=== PATIENT | male | born 1950 | race Caucasian/White ===

== ENCOUNTER → 2018-05-30 10:02 | Outpatient (CLI) | payer MEDICARE, OTHER, SELFPAY ==
--- NOTE | 2018-05-30 | DI.CT.S_ITS ---
PROCEDURE: CT CHEST ABD PEL W CON INDICATIONS: PROSTATE CANCER TECHNIQUE: After the administration of oral and intravenous contrast, 5 mm thick sections acquired from the lung apices to the symphysis. 5 mm coronal and sagittal reformats were performed, with additional 7 mm coronal MIP reformats through the lungs. For radiation dose reduction, the following was used: automated exposure control, adjustment of mA and/or kV according to patient size. COMPARISON: None. FINDINGS: Image quality: Excellent. CHEST: Lungs and pleura: There is biapical scarring. 4 mm nodular density in the anterior aspect of right upper lobe is seen series 3 image 28. 2 mm subpleural ground glass density nodule is seen in anterior aspect of right middle lobe series 3 image 45. 4 mm partially calcified nodule in lateral periphery of left upper lobe is seen series 3 image 42. Scarring/atelectasis in posterior aspect of bilateral lower lung [place] are seen. No acute airspace opacities. No pleural effusions or pneumothorax. Central and peripheral airways appear patent and normal in caliber. Mediastinum: Heart size is normal. No pericardial effusion. No mediastinal or hilar adenopathy by size criteria. Thoracic aorta and central pulmonary arteries are normal in size. Esophagus is normal in caliber. There is a small hiatal hernia. Chest wall: No axillary or supraclavicular adenopathy by size criteria. Thyroid gland is within normal limits. ABDOMEN: Solid organs: Liver is normal in size. Mild hepatic steatosis is seen. Gallbladder is within normal limits. Biliary system is non dilated. Pancreas enhances normally. Spleen is normal in size and enhancement. No adrenal nodules. Kidneys demonstrate normal size and enhancement, without hydronephrosis. Peritoneum and bowel: Bowel loops demonstrate normal wall thickness and caliber. No free fluid or air. Nodes and vessels: No retroperitoneal or mesenteric adenopathy by size criteria. Aorta and inferior vena cava are normal in size. Miscellaneous: No ventral hernias. PELVIS: Genitourinary: Mild diffuse bladder wall thickening is seen, no discrete bladder wall lesion. Prostate gland is enlarged with mild mass effect of floor of urinary bladder. Miscellaneous: No inguinal hernias or adenopathy. Bones: No suspicious bony lesions. No vertebral body compression fractures. IMPRESSION: 1. 2 and 4 mm solid nodular densities in right upper and middle lobes as above. Partially calcified left upper lobe nodule. Finding likely represents benign process. Metastatic lung nodule cannot be entirely excluded given patient history. Followup CT study in 6-12 months is recommended. 2. Mild diffuse bladder wall thickening, no discrete bladder wall lesion. Enlarged prostate gland with mild mass effect of floor of urinary bladder. 3. No lymphadenopathy is seen in the chest, abdomen or pelvis. 4. No discrete suspicious bony lesion is noted. Please correlate with nuclear medicine bone scan finding. Dictated by: Kd Ayers M.D. on 05/30/2018 at 13:43 Approved by: Kd Ayers M.D. on 05/30/2018 at 13:54
--- NOTE | 2018-05-30 | DI.NM.S_ITS ---
PROCEDURE: NM BONE SCAN WHOLE BODY RADIOPHARMACEUTICAL: 20 mCi Tc-99m MDP IV. INDICATIONS: PROSTATE CANCER TECHNIQUE: Delayed whole-body scintigrams were obtained approximately 3-4 hours after intravenous injection of radiotracer. Anterior and posterior views were acquired from vertex to feet. Additional left and right oblique views of the pelvis were obtained. COMPARISON: [facility], CT, CT CHEST ABD PEL W CON, 05/30/2018, 11:58. FINDINGS: Degenerative changes are present at the a.c. joints bilaterally, right greater than left. Moderate osteoarthritis also can be seen at each risks, also right greater than left. Over the axial and appendicular skeleton no osseous metastatic disease is found. IMPRESSION: No evidence of prostate carcinoma metastasis. Degenerative changes as discussed. Dictated by: Eric Estrada M.D. on 05/30/2018 at 15:23 Approved by: Eric Estrada M.D. on 05/30/2018 at 15:25
== END ==
PROVIDERS: Family Provider Family Medicine; PCP Family Medicine; Visit Provider Specialist
DX: C61 Malignant neoplasm of prostate (principal); M19.012 Primary osteoarthritis, left shoulder; M19.011 Primary osteoarthritis, right shoulder; R91.8 Other nonspecific abnormal finding of lung field; N40.0 Benign prostatic hyperplasia without lower urinary tract symptoms
CPT/HCPCS: 71260; 74177; 78306; A9503; Q9967

== ENCOUNTER → 2018-08-02 08:34 | Outpatient (CLI) | payer MEDICARE, OTHER, SELFPAY ==
--- NOTE | 2018-08-02 | DI.US.S_ITS ---
PROCEDURE: US ABD AORTA ANEURYSM SCREEN INDICATIONS: Nicotine dependence, unspecified, in remission TECHNIQUE: Real time scanning was performed of the aorta and iliac arteries, with image documentation. COMPARISON: None. FINDINGS: Aorta: Proximal aortic diameter measures 2.2 cm. Mid-aorta measures 1.9 cm. Distal aortic diameter is 1.8 cm. Iliac arteries: Right common iliac artery measures 1.2 cm. Left common iliac artery measures 1.2 cm. IMPRESSION: No abdominal aortic aneurysm or iliac aneurysm identified. Dictated by: Adán Rubalcava M.D. on 08/02/2018 at 17:43 Approved by: Adán Rubalcava M.D. on 08/02/2018 at 17:44
== END ==
PROVIDERS: Family Provider Family Medicine; PCP Family Medicine; Referring Provider Specialist; Visit Provider Family Medicine
DX: Z13.6 Encounter for screening for cardiovascular disorders (principal); F17.201 Nicotine dependence, unspecified, in remission
CPT/HCPCS: 76706

== ENCOUNTER → 2019-01-04 13:02 | Outpatient (CLI) | payer MEDICARE, OTHER, SELFPAY ==
--- NOTE | 2019-01-04 | DI.CT.S_ITS ---
PROCEDURE: CT CHEST W CON INDICATIONS: PULMONARY NODULE TECHNIQUE: After the administration of intravenous contrast, 5 mm thick sections acquired from the pulmonary apices to the posterior costophrenic angles. 1 mm axial lung, 5 mm thick coronal and sagittal reformats and 7 mm axial MIP were acquired. For radiation dose reduction, the following was used: automated exposure control, adjustment of mA and/or kV according to patient size. COMPARISON: [facility], CT, CT CHEST ABD PEL W CON, 05/30/2018, 11:58. FINDINGS: Image quality: Excellent. Lungs and pleura: Nodule #1: 4 mm, solid, right upper lobe, Series 3 image Image 118, unchanged Nodule #2: 2 mm, solid, right middle lobe, Series 3 image Image 203, unchanged Nodule #3: 4 mm, calcified, Left upper lobe, Series 3 image Image 194, unchanged Nodule #4: 3 mm, calcified, Left lower lobe, Series 3 image Image 199, unchanged No acute air space opacities. No pleural effusions or pneumothorax. Central and peripheral airways are patent and normal in caliber. Mediastinum: Heart size is normal. No pericardial effusion. No mediastinal or hilar adenopathy by size criteria. Thoracic aorta and central pulmonary arteries are normal in size. Esophagus is normal in caliber. Tiny hiatal hernia. Bones and chest wall: No suspicious bony lesions. No vertebral body compression fractures. No axillary or supraclavicular adenopathy by size criteria. Thyroid gland is normal. Abdomen: Visualized upper abdominal solid organs appear normal. Upper abdominal bowel loops are normal in caliber. IMPRESSION: 1. Stable pulmonary nodules as described. Please see enclosed a followup recommendation. Fleischner Society criteria for SOLID lung nodule followup. Nodule size (mm)Low-risk patientHigh-risk patient?4No follow-up neededFollow-up at 12 mo; if no change, no further follow-up>[id number]-bx CT at 12 mo; if no change, no further follow-up needed.Initial follow-up CT at 6-12 mo, then 18-24 mo if no change. >6-8Initial follow-up CT at 6-12 mo, then 18-24 mo if no change. Initial follow-up CT at 3-6 mo, then 9-12 mo and 24 mo if no change. >8Follow-up CT at 3, 9, 24 mo. Or PET and/or biopsy.Same as for low-risk pts. Fleischner Society criteria for SUB-SOLID lung nodule followup. Solitary pure ground-glass nodules5 mm or lessNo followup needed. >5 mm3 mo follow-up CT to confirm persistence. Then annual CT for 3 years. Part-solid nodules3 mo follow-up CT to confirm persistence. If persistent with solid component <5 mm, annual CT for at least 3 years. If solid component is 5 mm or more, biopsy or surgical resection. Consider PET-CT for lesions > 10 mm. Multiple sub-solid nodulesPure ground glass nodules [address] at 2 and 4 years. Pure ground glass nodules >5 mm without dominant lesion. [address] to confirm persistence, then annual followup CT for at least 3 years. Dominant nodule(s) with part-solid or solid component. [address] to confirm persistence. If persistent, consider biopsy or surgical resection, lu if lesions have >5 mm solid component. Dictated by: Parmjit No M.D. on 01/04/2019 at 16:17 Approved by: Parmjit No M.D. on 01/04/2019 at 18:33
[2019-01-04 13:47] LABS: Blood Urea Nitrogen 16 mg/dL (9-20); Estimated Glomerular Filt Rate > 60.0 mL/min (>60)
== END ==
PROVIDERS: Family Provider Family Medicine; PCP Family Medicine; Visit Provider Family Medicine
DX: R91.8 Other nonspecific abnormal finding of lung field (principal)
CPT/HCPCS: 36415; 71260; 82565; 84520; Q9967

== ENCOUNTER → 2019-07-12 10:57 | Outpatient (CLI) | payer MEDICARE, OTHER, SELFPAY ==
[2019-07-13 00:01] LABS: COVID19 Sendout Not Detected (Not Detect)
== END ==
PROVIDERS: PCP Family Medicine; Visit Provider Registered Nurse
DX: Z01.812 Encounter for preprocedural laboratory examination (principal)
CPT/HCPCS: 87635

== ENCOUNTER 2019-07-14 11:26 | Day surgery (SDC) | payer MEDICARE, OTHER, SELFPAY ==
[2019-07-14] VITALS (10 sets, daily range): BP systolic 117–179; BP diastolic 72–104; PULSE 82–92; RESP 12–23; TEMP 36.3–37.1; O2SAT 92–100; BMI 28.3
[2019-07-14] MEDS: LACTATED RINGERS 1,000 ML 42 ML IV (12:00)
--- NOTE | 2019-07-14 14:17 | PM.PREOP ---
Pre-operative Note Interval Note History & Physical reviewed/Exam performed by Physician: Yes Changes to H&P: No H&P completed within 30 days and has changed as indicated here:: History and physical examination is unchanged versus that scanned into file.
[2019-07-14] MEDS: CEFAZOLIN 2 GM/100 ML FROZ.PIGGY IV (14:55)
--- NOTE | 2019-07-14 15:30 | SUR.OPER ---
Lithotomy on padded OR bed, head on pillow, arms secured on padded arm boards at <90 degrees abduction. Legs secured in padded yellow fins stirrups.
--- NOTE | 2019-07-14 15:43 | PM.OP.1 ---
Operative Date/Time/Diagnoses Date of procedure: 07/14/19 Time of procedure: 15:43 Pre-op diagnosis: 1. Bladder neck contracture. 2. Urinary retention. 3. Left epididymal orchitis/UTI. Post-op diagnosis: same Procedure & Clinicians Same procedure as scheduled: Yes
--- NOTE | 2019-07-14 15:44 | P.OP_ITS ---
Operative Date/Time/Diagnoses Date of procedure: 07/14/19 Time of procedure: 15:44 Pre-op diagnosis: 1. Bladder neck contracture. 2. Urinary retention. 3. Left epididymal orchitis. Post-op diagnosis: same Procedure & Clinicians Procedure: 1. Cystoscopy and incision bladder neck contracture. 2. Cystoscopy and dilation of bladder neck contracture. Same procedure as scheduled: Yes Indications: 1. Dense bladder neck contracture. 2. Urinary retention. 3. Urinary tract infection. Surgeon: Temitope Ching Click Yes if Unassisted: Yes Anesthesia Type: General Operative Notes Findings: Urethra-normal. External sphincter-coapted. Prostate-surgically absent. Bladder-dense 12 [place] contracture. Normal orifices bilaterally with clear efflux urine, and 1+ trabeculation. Closure Type: not applicable Specimen(s): none sent Applied: catheter (#22F silicone 2 way Mai) Estimated Blood Loss (mL): 0 Blood products transfused: none Tourniquet time (min): 0 Procedure in detail: Patient was positioned in supine was administered general anesthesia. He was then repositioned semi-lithotomy the lower abdomen genitalia and groin were prepped and draped in sterile fashion. The 24 [place]ankan urethra scope was then advanced lower new tract under direct visualization was 0? lens with the findings as described above. Next radial incisions were made deeply in the bladder neck until vascular tissue was reached circumferentially. Careful inspection was then taken in the bladder interior. The bladder was then filled partially and the scope was removed large caliber Pritesh sounds were then used to dilate the bladder neck further using slight focal rim right left anterior and posterior. The Pritesh sound was then removed and a 22 [place]an silicone Mai catheter was inserted the balloon inflated to 10 cc and was placed to gravity drainage. Patient was was then reapposed the sorensne in supine and awakened. He was then transferred to [facility] and transferred to recovery room in stable condition. Complications: none Post-operative Condition: stable Disposition: PACU Plan for aftercare: Discharge home.
[2019-07-14] MEDS: BELLADONNA/OPIUM SUPPOSITORIES 1 EACH PR (16:07)
[2019-07-14] MEDS: OXYCODONE IR 5 MG TABLET PO (16:40)
== END 2019-07-14 17:10 | disposition home or self-care (01) ==
PROVIDERS: PCP Family Medicine; Referring Provider Specialist; Visit Provider Specialist
PROC: (CPT 51040; principal; 2019-07-14 12:15)
DX: N32.0 Bladder-neck obstruction (principal); R33.8 Other retention of urine; I10 Essential (primary) hypertension; E78.5 Hyperlipidemia, unspecified; N45.2 Orchitis; N39.0 Urinary tract infection, site not specified
CPT/HCPCS: 51040; 87086; J0690; J2250; J2704; J3010

== ENCOUNTER → 2019-09-08 13:32 | Outpatient (CLI) | payer MEDICARE, OTHER, SELFPAY ==
--- NOTE | 2019-09-08 | DI.US.S_ITS ---
PROCEDURE: US ABDOMEN LIMITED INDICATIONS: LEFT INGUINAL PAIN, HYDROCELE TECHNIQUE: Real-time focused scanning was performed of the inguinal region, with image documentation. COMPARISON: [facility], CT, CT CHEST ABD PEL W CON, 05/30/2018, 11:58. FINDINGS: No inguinal hernia or other left groin abnormality seen. IMPRESSION: No left groin abnormality. Dictated by: Álvaro RANGEL Interpreted: Melisa Yost MD on 09/08/2019 at 15:05 Approved by: Melisa Yost MD, PhD on 09/08/2019 at 15:12
--- NOTE | 2019-09-08 | DI.US.S_ITS ---
PROCEDURE: US SCROTUM INDICATIONS: HYDROCELE TECHNIQUE: Real-time scanning was performed of the scrotum and testicles, with image documentation. Color and pulse Doppler interrogation was performed of both testicles. COMPARISON: [facility], CT, CT CHEST W CON, 01/04/2019, 14:29. FINDINGS: Right: Testicle is normal in size at 5.1 x 2.3 x 3.7 cm, and homogenous in echotexture. Epididymis is normal in overall size and morphology. Subcentimeter right epididymal cyst Large left hydrocele. No varicoceles. Overlying scrotal skin is normal in thickness. Left: Testicle is normal in size at 4.2 x 2.4 x 3.3 cm, and homogeneous in echotexture. Epididymis is normal in overall size and morphology. No hydrocele or varicoceles. Overlying scrotal skin is normal in thickness. Doppler: Color and pulse Doppler demonstrate normal and symmetric arterial flow in both testicles. IMPRESSION: 1. Large left hydrocele; otherwise normal appearance of the testicles bilaterally. 2. Subcentimeter right epididymal cyst. Dictated by: Álvaro Tran [facility] Interpreted: Melisa Yost MD on 09/08/2019 at 15:11 Approved by: Melisa Yost MD, PhD on 09/08/2019 at 15:22
== END ==
PROVIDERS: PCP Family Medicine; Referring Provider Specialist; Visit Provider Specialist
DX: N43.3 Hydrocele, unspecified (principal); R10.32 Left lower quadrant pain
CPT/HCPCS: 76705; 76870

== ENCOUNTER → 2019-12-01 07:52 | Outpatient (CLI) | payer MEDICARE, OTHER, SELFPAY ==
--- NOTE | 2019-12-01 07:55 | DI.US.S_ITS ---
PROCEDURE: US SCROTUM INDICATIONS: hydrocele TECHNIQUE: Real-time scanning was performed of the scrotum and testicles, with image documentation. Color and pulse Doppler interrogation was performed of both testicles. COMPARISON: [facility], US SCROTUM, 09/08/2019, 14:27. FINDINGS: Right: Testicle is normal in size at 5.5 x 2.6 x 3.6 cm, and homogenous in echotexture. Epididymis is normal in overall size and morphology. 5 mm epididymal cyst. No hydrocele or varicoceles. Overlying scrotal skin is normal in thickness. Left: Testicle is normal in size at 4.6 x 3.0 x 2.5 cm, and homogeneous in echotexture. Epididymis is normal in overall size and morphology. Large hydrocele redemonstrated which appears similar to prior exam. No varicoceles. Overlying scrotal skin is normal in thickness. Doppler: Color and pulse Doppler demonstrate normal and symmetric arterial flow in both testicles. IMPRESSION: 1. Large left hydrocele redemonstrated; otherwise normal appearance of the testicles bilaterally. 2. 5 mm right epididymal cyst. 3. No left inguinal canal abnormality seen. Dictated by: Álvaro Tran [facility] Interpreted: Kd Ayers MD on 12/01/2019 at 11:39 Approved by: Kd Ayers M.D. on 12/01/2019 at 15:48
== END ==
PROVIDERS: PCP Family Medicine; Referring Provider Specialist; Visit Provider Specialist
DX: N43.3 Hydrocele, unspecified (principal); N50.3 Cyst of epididymis
CPT/HCPCS: 76870

== ENCOUNTER → 2020-01-09 09:19 | Outpatient (CLI) | payer MEDICARE, OTHER, SELFPAY ==
[2020-01-10 00:50] LABS: COVID19 Sendout Not Detected (Not Detect)
== END ==
PROVIDERS: PCP Family Medicine; Visit Provider Physician Assistant
DX: Z01.812 Encounter for preprocedural laboratory examination (principal)
CPT/HCPCS: 87635

== ENCOUNTER 2020-01-12 12:03 | Day surgery (SDC) | payer MEDICARE, OTHER, SELFPAY ==
[2020-01-10 12:01] VITALS: BMI 29.7
[2020-01-12] VITALS (9 sets, daily range): BP systolic 149–185; BP diastolic 89–109; PULSE 77–103; RESP 11–20; TEMP 35.9–36.6; O2SAT 93–99; BMI 29.7
--- NOTE | 2020-01-12 | PATH_ITS ---
[facility] Accession Number: [id number] . 01 Material submitted: . testis - HYDROCELE SAC . 02 Diagnosis: Hydocele Sac, Excision: Consistent with hydrocele. No evidence of neoplasm. MRV 01/16/2020 1010 Local . 02 Electronically signed: . Gavino De Leon MD, PhD, Pathologist NPI- [id number] . 01 Gross description: . The specimen is received in formalin, labeled hydrocele sac, and consists of two martinez-pink, fibromembranous fragments of soft tissue measuring 9.0 x 3.0 x 2.5 cm in aggregate. billing customer service representative sections are submitted in cassettes A1-A2. ([id number]) /FRR 01/13/2020 1807 Local . 02 Pathologist provided ICD-10: N43.3 . 02 CPT . 683721 Performed at: [address] [facility] [address] [facility], [place], [place] [id number] MD César Perry MD Phone: [phone] Performed at: 02 [facility] [address] [place], [place] [id number] MD Eve Dunne MD Phone: [phone]
[2020-01-12] MEDS: LACTATED RINGERS 1,000 ML 42 ML IV (12:29)
--- NOTE | 2020-01-12 13:59 | PM.PREOP ---
Pre-operative Note Interval Note History & Physical reviewed/Exam performed by Physician: Yes Changes to H&P: No
[2020-01-12] MEDS: CEFAZOLIN VIAL 3 GM in SODIUM CHLORIDE 0.9% 100 ML 200 ML IV (14:34)
--- NOTE | 2020-01-12 15:02 | SUR.OPER ---
Supine on padded OR bed, head on pillow, arms secured on padded arm boards at <90 degrees abduction, legs uncrossed, safety belt at thigh, tape over blanket over lower legs.
--- NOTE | 2020-01-12 15:03 | SUR.OPER ---
Lithotomy on padded OR bed, head on pillow, arms secured on padded arm boards at <90 degrees abduction. Legs secured in padded yellow fins stirrups.
[2020-01-12] MEDS: BUPIVACAINE 0.25% W/ EPI 30 ML VIAL INJ (15:22)
[2020-01-12] MEDS: BELLADONNA/OPIUM SUPPOSITORIES 1 EACH PR (15:22)
[2020-01-12] MEDS: BUPIVACAINE LIPOSOME 266 MG/20 ML VIAL INJ (15:25)
[2020-01-12] MEDS: NEOMYCIN/POLYMYXIN/BACITRA UD OINT 1 EACH TOP (15:25)
--- NOTE | 2020-01-12 16:22 | SUR.OPER ---
TFL laser total time 11 ;50min, 14.193kj
--- NOTE | 2020-01-12 16:38 | P.OP_ITS ---
Operative Date/Time/Diagnoses Date of procedure: 01/12/20 Time of procedure: 16:38 Pre-op diagnosis: 1. Large left hydrocele. 2. Bladder neck contracture. Post-op diagnosis: same Procedure & Clinicians Procedure: 1. Left hydrocelectomy. 2. Cystoscopy and incision bladder neck contracture (Soltive laser). Same procedure as scheduled: Yes Indications: 1. Large left hydrocele. 2. Bladder neck contracture. Surgeon: Temitope Ching Click Yes if Unassisted: Yes Anesthesia Type: General and Local (1.33% Exparel and 0.5% Marcaine with epinephrine.) Operative Notes Findings: 1. Large left hydrocele with clear straw-colored fluid within. Otherwise tissue planes unremarkable. 2. Urethra- normal caliber throughout without lesion or stricture. 3. External sphincter-coapted. 4. Prostate-surgically absent. 5. Bladder-there is a fixed 4 mm bladder neck contracture. Bladder has 1+ trabeculation. Closure Type: primary Specimen(s): other (Hydrocele sac) Applied: catheter (20. Mozambican silicone [address] way catheter) Estimated Blood Loss (mL): 2 Blood products transfused: none Tourniquet time (min): 0 Procedure in detail: The patient was positioned in supine was administered general anesthesia. The lower abdomen genitalia and groin were then prepped and draped in sterile fashion. A solution of 0.5% Marcaine with epinephrine was then used to infiltrate the midline scrotal raphe. The needlepoint cautery pen was then used to divide the midline raphe skin and subcutaneous dartos fascia. Careful blunt cautery dissection were continued down the level of the tunica vaginalis of the left hemiscrotum. The appropriate plane was encountered and developed circumferentially. The entire hydrocele and its contents were then delivered from the left hemiscrotum. The hydrocele was then opened vertically at its anterior surface and this contents drained (280 cc). The excess hydrocele sac was then excised and submitted to pathology for routine gross microscopic examination. Hemostasis was excellent. The inferior pole and superior pole were then secured to the posterior and inner aspect of the scrotal wall using interrupted 2 0 Monocryl. The testicle was repositioned left hemiscrotum and an anatomic position. Exparel was then used to infiltrate the inferior lateral aspect of the left hemiscrotum and the midline scrotal skin and subcutaneous dartos fascia. The cord was also infiltrated with the same anesthetic above the testicle. A 15 [place]ican Kevin drain was then brought through the inferior lateral aspect of the left hemiscrotum. The tip of the drain was trimmed to appropriate length and po sitioned in left hemiscrotum. The drain was then secured to the skin with 2 0 silk. Next the dartos fascia was closed using a 2 0 Monocryl with a vertical mattress technique. Finally the skin layer was reapproximated using a running 4 0 Monocryl using a horizontal mattress technique. The skin surface was cleaned and dried. Patient was then repositioned in semi-lithotomy and the lower abdomen, genitalia, and groin were prepped and draped in sterile fashion. The 22 [place]ican laser endoscope was then passed lower urinary tract with the findings as described above. A guidewire was utilized to advanced through the very small aperture of the bladder neck contracture under direct visualization. Laser scope was then backloaded off the guidewire and now Devries sounds were used to dilate the bladder neck contracture to 22 [place]ican. The laser endoscope was then passed again and lower urinary tract and advanced level of bladder neck. A 365 micron laser fiber was selected. All operating room personnel and patient were fitted with laser safety eyewear. Laser incisions of the bladder neck at 3:00 a.m. and 9:00 a.m. were undertaken deeply and laterally. The intervening tissue between 3 and 9:00 a.m. was then laser vaporized. This left a widely patent bladder neck. Hemostasis was excellent. The bladder was then left partially filled and all instrumentation was removed. A [address] catheter was then placed lower urinary tract, and the balloon was inflated 10 cc. Catheter was then placed to gravity drainage. The patient was then repositioned in steep supine and a scrotal dressing and athletic supporter were applied to the patient. The patient was then awakened, transferred to [facility], and transferred to recovery room. Complications: none Post-operative Condition: stable Disposition: PACU Plan for aftercare: Discharge home
[2020-01-12] MEDS: ACETAMINOPHEN 325 MG TABLET 650 MG PO (17:07)
--- NOTE | 2020-01-12 18:21 | SUR.PHASEII ---
D/C instructions discussed with pt and his . Francisco to leg bag and leg bag to francisco familiar to both as pt has had before, DION emptying and recording and reporting discussed as well and printed instructions given. Pt ready to go, assisted to dress and pt left unit in stable condition.
== END 2020-01-12 18:09 | disposition home or self-care (01) ==
PROVIDERS: PCP Family Medicine; Referring Provider Specialist; Visit Provider Specialist
PROC: 0TBC8ZZ Excision of Bladder Neck, Via Natural or Artificial Opening Endoscopic (ICD-10-PCS; CPT 52500; principal; 2020-01-12 13:15)
PROC: (CPT 55040; 2020-01-12 13:15)
DX: N43.3 Hydrocele, unspecified (principal); N32.0 Bladder-neck obstruction; I10 Essential (primary) hypertension; E78.5 Hyperlipidemia, unspecified
CPT/HCPCS: 55040; 52276; C9290; J0690; J1100; J2250; J2405; J2704; J3010